=== PATIENT | female | born 1950 | race Caucasian/White ===

== ENCOUNTER 2019-02-01 10:02 | Observation (INO) ==
[2019-02-01 10:35] LABS: Basophils % 0.5 %; Eosinophils # 0.2 K/mcL (0.0-0.6); Eosinophils % 3.5 %; Hematocrit 44.3 % (35.3-44.9); Hemoglobin 15.4 g/dL (11.5-15.4); Lymphocytes # 2.1 K/mcL (0.6-4.6); Lymphocytes % 35.3 %; Mean Corpuscular HGB Conc 34.8 g/dL (31.6-35.5); Mean Corpuscular Hemoglobin 30.6 pg (28.0-33.3); Mean Corpuscular Volume 87.9 fL (83.0-100.0); Mean Platelet Volume 9.6 fL (9.4-12.4); Monocytes # 0.5 K/mcL (0.0-1.3); Monocytes % 8.7 %; Neutrophils # 3.2 K/mcL (1.6-8.9); Platelet Count 214 K/mcL (140-400); Red Blood Count 5.04 M/mcL (3.82-4.97); Red Cell Distribution Width 12.4 % (11.5-14.5); White Blood Count 6.1 K/mcL (4.3-11.1)
[2019-02-01] MEDS ORDERED: Aspirin 325 MG TABLET PO ONE (10:49)
[2019-02-01 10:57] LABS: BUN/Creatinine Ratio 16 (6-26); Blood Urea Nitrogen 14 mg/dL (8-23); Carbon Dioxide 26 mEq/L (23-29); Chloride 103 mEq/L (98-107); Glucose 122 mg/dL (70-105); Osmolality,Calculated 282 (280-300); Potassium 4.2 mEq/L (3.5-5.1); Sodium 135 mEq/L (136-145); eGFR For African Americans > 60 (> 60); eGFR For Non-African Americans > 60 (> 60)
[2019-02-01] MEDS ORDERED: Nitroglycerin 0.4 MG TAB.SUBL SL PRN ×2 (11:00→13:27)
[2019-02-01 11:01] LABS: Troponin I 0.12 ng/mL (< 0.04)
[2019-02-01] MEDS ORDERED: *HR* Heparin 5,000 UNIT/ML VIAL IVP PRN ×2 (11:05)
[2019-02-01] MEDS ORDERED: *HR* Heparin 5,000 UNIT/ML VIAL IVP ONE (11:05)
[2019-02-01] MEDS ORDERED: Heparin 25,000 UNIT/250 ML D5W 25,000 UNIT/250 ML IV.SOLN IVC SCH (11:15)
[2019-02-01 11:44] LABS: INR 0.9
[2019-02-01] MEDS ORDERED: Naloxone 0.4 MG/ML INJ IVP PRN (13:21)
[2019-02-01] MEDS ORDERED: Ondansetron 4 MG/2 ML VIAL IVP PRN (13:21)
[2019-02-01] MEDS ORDERED: Dextrose Gel 15 GM/37.5 ML TUBE PO PRN ×2 (13:30)
[2019-02-01] MEDS ORDERED: *HR* Dextrose 50 % in Water (Syg) 50 ML SYRINGE IVP PRN (13:30)
[2019-02-01] MEDS ORDERED: D5% in Water 1,000 ML IVC PRN (13:30)
[2019-02-01 13:50] LABS: Magnesium 2.2 mg/dL (1.6-2.6)
[2019-02-01 15:28] LABS: Estimated Average Glucose 143 mg/dl
[2019-02-01] MEDS: Insulin LISPRO 300 UNITS/3 ML VIAL SQ SCH (17:52)
[2019-02-01] MEDS ORDERED: Insulin LISPRO 300 UNITS/3 ML VIAL SQ SCH (21:00)
[2019-02-02 01:34] LABS: Alanine Aminotransferase 14 Units/L (7-52); Albumin/Globulin Ratio 1.7 (1.1-2.2); Alkaline Phosphatase 71 Units/L (34-104); Aspartate Amino Transferase 19 Units/L (13-39); BUN/Creatinine Ratio 18 (6-26); Bilirubin,Total 0.5 mg/dL (0.3-1.0); Blood Urea Nitrogen 16 mg/dL (8-23); Calcium 9.7 mg/dL (8.6-10.3); Carbon Dioxide 24 mEq/L (23-29); Chloride 102 mEq/L (98-107); Chol/HDL Ratio 5.8 (0-4.9); Cholesterol 215 mg/dL (< 200); Globulin 2.4 g/dL (2.4-3.5); Glucose 98 mg/dL (70-105); HDL Cholesterol 37 mg/dL (40-59); LDL Cholesterol,Calculated 117 mg/dL (0-99); Osmolality,Calculated 285 (280-300); Potassium 3.9 mEq/L (3.5-5.1); Sodium 137 mEq/L (136-145); Total Protein 6.4 g/dL (6.4-8.9); Triglycerides 304 mg/dL (< 150); eGFR For African Americans > 60 (> 60); eGFR For Non-African Americans > 60 (> 60)
[2019-02-02 07:44] VITALS: BP 152/78
[2019-02-02] MEDS: Insulin LISPRO 300 UNITS/3 ML VIAL SQ SCH (08:10)
[2019-02-02] MEDS ORDERED: Aspirin 81 MG TAB.CHEW PO SCH (09:00)
[2019-02-02] MEDS ORDERED: FLUOXETINE MC SCH (09:00)
[2019-02-02] MEDS ORDERED: FLUoxetine 20 MG CAPSULE PO SCH (09:00)
[2019-02-02] MEDS ORDERED: Verapamil ER (24 HR) 120 MG TABLET.ER PO SCH (11:00)
[2019-02-03] MEDS ORDERED: *HR* Metformin 500 MG TABLET PO SCH (08:00)
== END 2019-02-02 12:33 | disposition home or self-care (01) ==
LOC: EMEROOARM 10:02 → 3BNU 10:02 → SUATTDRO 13:29 → 3BNU 14:27
PROVIDERS: ADMIT Family Medicine; ATTEND General Practice